=== PATIENT | male | born 1990 | race Caucasian/White ===

== ENCOUNTER 2017-08-06 02:50 | Emergency (ER) | payer OTHER ==
[~2017-08-06] VITALS: Ht 167.6 cm; Wt 101.7 kg
[2017-08-06 03:03] VITALS: BP 114/75
[2017-08-06] MEDS ORDERED: NACL 0.9% 1,000 ML IV ONE (05:10)
[2017-08-06] MEDS ORDERED: LEVOFLOXACIN 500 MG/D5W PREMIX 100 ML IV ONE (05:10)
[2017-08-06 06:16] VITALS: BP 118/62
== END 2017-08-06 06:16 | disposition home or self-care (01) ==
LOC: MED 02:50
DX: A08.4 Viral intestinal infection, unspecified (principal)
CPT/HCPCS: 96365; 99284; J1956; J7030

== ENCOUNTER 2019-04-17 18:06 | Emergency (ER) | payer OTHER ==
[~2019-04-17] VITALS: Ht 170.2 cm; Wt 105.2 kg
[2019-04-17 18:31] VITALS: BP 117/69
--- NOTE | 2019-04-17 18:38 | NUR ---
PT AMBULATED TO [facility] AT THIS TIME
--- NOTE | 2019-04-17 18:44 | NUR ---
BIB SELF C/O THROAT PAIN X 5 WEEKS. SEEN BY [facility]RGENT [facility] 11 DAYS AGO & FINISHED AMOXICILLIN YESTERDAY BUT STILL HAVE THROAT PAIN. PATIENT STATES PAIN OF 7/10 AT THIS TIME.
--- NOTE | 2019-04-17 19:38 | NUR ---
PT AMBULATED TO BED 5
--- NOTE | 2019-04-17 20:12 | NUR ---
Dr. Renee examining patient.
[2019-04-17 20:16] VITALS: BP 125/75
--- NOTE | 2019-04-17 20:17 | NUR ---
Patient discharged with v/s stable. Written and verbal after care instructions given and explained. Patient alert, oriented and verbalized understanding of instructions. Ambulatory with steady gait. All questions addressed prior to discharge. ID band removed. Patient advised to follow up with PMD. Rx of biaxin given. Patient educated on indication of medication including possible reaction and side effects. Opportunity to ask questions provided and answered.
== END 2019-04-17 20:17 | disposition home or self-care (01) ==
LOC: MED 18:06
DX: J02.9 Acute pharyngitis, unspecified (principal); F12.90 Cannabis use, unspecified, uncomplicated; Z71.6 Tobacco abuse counseling
CPT/HCPCS: 99283

== ENCOUNTER 2019-04-22 18:19 | Emergency (ER) | payer OTHER ==
[~2019-04-22] VITALS: Ht 167.6 cm; Wt 107.0 kg
[2019-04-22 18:20] VITALS: BP 134/56
--- NOTE | 2019-04-22 18:28 | NUR ---
AMBULATED TO BED 11.
[2019-04-22] MEDS ORDERED: DEXAMETHASONE 10 MG/ML VIAL IM ONE (18:35)
[2019-04-22] MEDS ORDERED: CLINDAMYCIN 600 MG/4 ML VIAL IM ONE (18:35)
--- NOTE | 2019-04-22 18:35 | NUR ---
C/O SORE THROAT X1 WEEK. PT WAS SEEN AT [facility] 1 WEEK AGO AND GIVEN ABX BUT PER PT, HIS THROAT IS STILL SORE. DENIES FEVER, NAUSEA, VOMITING, SOB. BED IN LOW POSITION, SIDE RAIL UP X1
--- NOTE | 2019-04-22 18:40 | NUR ---
DR. CROWLEY AT BEDSIDE
[2019-04-22 19:01] VITALS: BP 134/56
--- NOTE | 2019-04-22 19:02 | NUR ---
Patient discharged with v/s stable. Written and verbal after care instructions given and explained. Patient alert, oriented and verbalized understanding of instructions. Ambulatory with steady gait. All questions addressed prior to discharge. ID band removed. Patient advised to follow up with PMD. Rx of PREDNISONE, CLINDAMYCIN given. Patient educated on indication of medication including possible reaction and side effects. Opportunity to ask questions provided and answered.
== END 2019-04-22 19:02 | disposition home or self-care (01) ==
LOC: MED 18:19
DX: J02.9 Acute pharyngitis, unspecified (principal); R09.82 Postnasal drip; F12.90 Cannabis use, unspecified, uncomplicated
CPT/HCPCS: 96372; 99283; J1100; J3490

== ENCOUNTER 2020-10-11 23:53 | Emergency (ER) | payer OTHER ==
[~2020-10-11] VITALS: Ht 170.2 cm; Wt 108.9 kg
[2020-10-11 23:58] VITALS: BP 155/94
--- NOTE | 2020-10-12 00:04 | NUR ---
DR CORBETT AT BEDSIDE EXAMINING PT
--- NOTE | 2020-10-12 00:04 | NUR ---
PT AMBULATED TO BED 08, STEADY GAIT
--- NOTE | 2020-10-12 00:05 | NUR ---
Silviano gates in ED - 10/12/20 at 0049 by [email or web address] Patient discharged with v/s stable. Written and verbal after care instructions given and explained. Patient verbalized understanding. Ambulatory with steady gait. All questions addressed prior to discharge. Advised to follow up with PMD.
--- NOTE | 2020-10-12 00:05 | NUR ---
PATIENT BIB SELF C/O "ANXIETY" X 1 DAY. PATIENT STATES "KEITH BEEN SO STRESSED OUT. IT COMES AND GOES." A & O X4. 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 PATIENT DENIES SNYCOPAL EPISODES. DENIES N/V. PATIENT DENIES CP, SOB, FEVER, CHILLS. SEE COMPLETE ASSESSMENT FOR FURTHER DETAILS. MED HX: DENIES ALLERGIES: NKA
--- NOTE | 2020-10-12 00:12 | NUR ---
EKG PERFORMED AT BEDSIDE. NSR- 85. ANGELITA MADE AWARE.
--- NOTE | 2020-10-12 00:20 | NUR ---
PATIENT STATES "I FEEL SO MUCH BETTER AFTER TALKING TO YOU AND THE DOCTOR." DENIES CP OR SOB AT THIS TIME. VSS.
[2020-10-12 00:46] VITALS: BP 124/75
--- NOTE | 2020-10-12 00:46 | NUR ---
Patient discharged with v/s stable. Written and verbal after care instructions given and explained. Patient verbalized understanding. Ambulatory with steady gait. All questions addressed prior to discharge. Advised to follow up with PMD.
== END 2020-10-12 00:46 | disposition home or self-care (01) ==
LOC: MED 23:53
DX: F41.1 Generalized anxiety disorder (principal); R00.2 Palpitations
CPT/HCPCS: 93005; 99283

== ENCOUNTER 2020-11-22 22:09 | Emergency (ER) | payer OTHER ==
[~2020-11-22] VITALS: Ht 170.2 cm; Wt 106.6 kg
[2020-11-22 22:38] VITALS: BP 129/82
--- NOTE | 2020-11-22 22:40 | NUR ---
PATIENT TAKEN TO [facility]. PATIENT AMBUALTORY WITH STEADY GAIT.
[2020-11-22] MEDS ORDERED: predniSONE 20 MG TAB PO ONE (23:30)
[2020-11-22] MEDS ORDERED: DIPH25TA53 PO (23:32)
[2020-11-22] MEDS ORDERED: PRED20TA5 PO (23:32)
--- NOTE | 2020-11-22 23:42 | NUR ---
ANGELITA AT [facility] FOR MEDICAL EVALUATION.
[2020-11-22 23:50] VITALS: BP 118/78
--- NOTE | 2020-11-22 23:50 | NUR ---
Patient discharged with v/s stable. Written and verbal after care instructions given and explained. Patient alert, oriented and verbalized understanding of instructions. Ambulatory with steady gait. All questions addressed prior to discharge. ID band removed. Patient advised to follow up with PMD. Rx of BENADRYL,PREDNISONE given. Patient educated on indication of medication including possible reaction and side effects. Opportunity to ask questions provided and answered.
== END 2020-11-23 00:01 | disposition home or self-care (01) ==
LOC: MED 22:09
DX: J38.5 Laryngeal spasm (principal); Z79.899 Other long term (current) drug therapy
CPT/HCPCS: 99283; J7512; Q0163

== ENCOUNTER 2021-02-20 00:15 | Emergency (ER) | payer OTHER ==
[~2021-02-20] VITALS: Ht 170.2 cm; Wt 108.9 kg
[~2021-02-20 00:15] MED LIST: DIPH25TA53 PO; PRED20TA5 PO
[2021-02-20 00:20] VITALS: BP 113/59
--- NOTE | 2021-02-20 00:20 | NUR ---
TO TENT AMBULATORY
--- NOTE | 2021-02-20 00:25 | NUR ---
SEEN AND EXAMINED BY ANGELITA
--- NOTE | 2021-02-20 00:55 | NUR ---
SWABS FOR YELENA PAINTING SENT TO LAB
--- NOTE | 2021-02-20 02:09 | NUR ---
RESULTS BACK AND NOTED BY ERMD AND FOR D/C
[2021-02-20] MEDS ORDERED: ALBU0.0912 IH (02:10)
--- NOTE | 2021-02-20 02:40 | NUR ---
Patient discharged with v/s stable. Written and verbal after care instructions given and explained. Patient alert, oriented and verbalized understanding of instructions. Ambulatory with steady gait. All questions addressed prior to discharge. ID band removed. Patient advised to follow up with PMD. Rx of VENTOLIN given. Patient educated on indication of medication including possible reaction and side effects. Opportunity to ask questions provided and answered.
[2021-02-20 03:01] VITALS: BP 121/70
== END 2021-02-20 02:40 | disposition home or self-care (01) ==
LOC: MED 00:15
DX: U07.1 COVID-19 (principal); Z79.899 Other long term (current) drug therapy
CPT/HCPCS: 71045; 87426; 99284; U0003

== ENCOUNTER 2021-03-12 02:34 | Emergency (ER) | payer OTHER ==
[~2021-03-12] VITALS: Ht 170.2 cm; Wt 107.0 kg
[~2021-03-12 02:34] MED LIST changes: +ALBU0.0912 IH
[2021-03-12 02:42] VITALS: BP 130/75
== END 2021-03-12 04:34 | disposition left against medical advice (07) ==
LOC: MED 02:34
DX: R19.7 Diarrhea, unspecified (principal); Z53.21 Procedure and treatment not carried out due to patient leaving prior to being seen by health care provider